=== PATIENT | female | born 1990 | race Caucasian/White ===

== ENCOUNTER → 2019-04-05 | Outpatient (CLI) | payer OTHER ==
[~2019-04-05] MED LIST: ALBU90OI INH; AZIT250 PO; Amoxicillin500 MG PO; DIPATR PO; Flonase 0.05% N16 GM; HYDACE5325 PO; METPRE4DP PO; MULVITMINE PO; Monodox100 MG PO; ONDA4ODT MM; PROM25 PO; SERT50 PO
== END ==
LOC: LAB SHORT 08:00 → LAB EV 08:00
DX: N39.0 Urinary tract infection, site not specified (principal)
CPT/HCPCS: 87077; 87086; 87186

== ENCOUNTER → 2021-10-11 | Outpatient (CLI) | payer OTHER ==
[2021-10-15 07:10] LABS: HPV 16 Negative (Negative); HPV 18 Negative (Negative); HPV OTHER HR TYPES Negative (Negative)
== END | disposition home or self-care (01) ==
LOC: LAB 15:33 → LAB SHORT 15:33
PROVIDERS: Advanced Practice Midwife
DX: Z01.419 Encounter for gynecological examination (general) (routine) without abnormal findings (principal)
CPT/HCPCS: 87624; G0123

== ENCOUNTER → 2022-06-27 | Outpatient (CLI) | payer OTHER ==
[2022-06-27 15:13] LABS: Candida species (DNA Probe) Negative (NEGATIVE); G. vaginalis (DNA Probe) Negative (NEGATIVE); T. vaginalis (DNA Probe) Negative (NEGATIVE)
[2022-06-29 04:06] LABS: CHLAMYDIA TRACHOMATIS, NAA Negative (Negative)
== END | disposition home or self-care (01) ==
LOC: LAB SHORT 13:26 → LAB 13:26
PROVIDERS: Advanced Practice Midwife
DX: Z11.3 Encounter for screening for infections with a predominantly sexual mode of transmission (principal); N76.0 Acute vaginitis
CPT/HCPCS: 87480; 87491; 87510; 87591; 87660

== ENCOUNTER → 2024-11-07 | Outpatient (CLI) | payer OTHER ==
[2024-11-07 14:38] LABS: Chlamydia Trachomatis Urine NOT DETECTED (NOT DETECT); Neisseria Gonorrhoea Urine NOT DETECTED (NOT DETECT)
== END ==
LOC: LAB 07:00 → LAB SHORT 07:00
PROVIDERS: Student in an Organized Health Care Education/Training Program
DX: N39.0 Urinary tract infection, site not specified (principal)
CPT/HCPCS: 87491; 87591